=== PATIENT | female | born 1995 | race Caucasian/White ===

== ENCOUNTER → 2017-12-21 | Outpatient (CLI) | payer OTHER | END | disposition home or self-care (01) | LOC: C.LABMFLN 09:28 | PROVIDERS: ATTEND Internal Medicine Endocrinology, Diabetes & Metabolism | DX: E03.9 Hypothyroidism, unspecified (principal) ==

== ENCOUNTER 2020-05-01 07:06 | Inpatient (IN) ==
--- NOTE | 2020-04-30 16:00 | History & Physical Report ---
Date of Service April 30, 2020 Assessment & Plan (1) : Plan for repeat low transverse section with bilateral tubal ligation. Informed consent discussed in office. Questions answered. Reviewed RBA of , also discussed risk of 1-11/999 after tubal. Discussed use of Filshie clips and answered questions on these. Informed consent obtained. (2) Supervision of normal intrauterine in multigravida: (3) Previous delivery affecting , antepartum: (4) Bicornuate uterus affecting , antepartum: (5) Hypothyroid: (6) MTHFR gene mutation: History of Present Illness Chief Complaint: h/o cs x 2 Primary Care Provider: Colt Warren MD 24yo with EDC 05/08/20. History of section x 2, plan for repeat. complicated by: contractions at 24wk without dilation, no PTL - was put on Procardia 30XL daily, modified bedrest, taken off work, patient says [facility] had considered giving her steroids but did not actually do so yet. To stop Procardia as of 28wk and will notify us of any increase in cramping or resumption of mucousy discharge. H/O LEEP - cervical lengths checked several times, always normal. No further checks per [facility]. Prior CS x2 -, desires tubal. C/S SCHEDULED FOR 05/[address] M[address]Z AND [address]. PRESTON ASSIST Hypothyroid - Check TFTs monthly, continue synthroid 88mcg daily. (TSH in goal range at 28wk) Bicornuate Uterus - Growth scans monthly per [facility]. H/O GHTN/PreEclampsia (says "high BP" in [facility] records, but Preeclampsia in MFM consult) - on baby ASA daily MTHFR mutation, zygosity unknown - baby ASA daily per Dr. Macias, no test results available to confirm hetero/homozygous. MFM aware of baby ASA and did not recommend stopping. They did recommend "consider antiphospholipid syndrome" testing, and if positive, repeat in 12 weeks. If still positive, consider therapy including "ASA and pharmacologic anticoagulation." As 12 weeks will put her past the end of this , plan for now to continue ASA without changes to management. Allergies Allergy/AdvReac Type Severity Reaction Status Date / Time adhesive tape Allergy Intermediate Rash Verified 04/30/20 10:47 latex Allergy Intermediate Rash Verified 04/30/20 10:47 Home Medications Home Medications Medication Instructions Recorded Confirmed Type aspirin 81 mg chewable tablet 81 mg PO DAILY 02/11/20 04/30/20 History prenat.vits,jerzy,[id number] 1 tab PO DAILY 02/11/20 04/30/20 History levothyroxine 88 mcg capsule 88 mcg PO DAILY #30 cap 04/10/20 04/30/20 Rx Patient History Medical History ASCUS with positive high risk HPV Bicornate uterus AMINAH I (cervical intraepithelial neoplasia I) Hiatal hernia Hx of migraines Hypothyroid Missed x5 MTHFR gene mutation aspirin only during . no specialist. Nausea and vomiting after administration of anesthetic agent Surgical History H/O section x2 H/O LEEP History of dilatation and curettage History of esophagogastroduodenoscopy (EGD) History of tonsillectomy Family History Father Diabetes Heart disease Mother Heart disease Other Cancer Dyslipidemia Hypertension Myocardial infarction Social History Preferred Language: Mongolian Communication Ability: Effective Secondary History Teacher Required: No Beliefs That Will Affect Care: None marital status: marital status details: Hayden Muller [phone] Current Living Situation Comment: lives with parents current occupational status: unemployed Feels Safe at Home: Yes Smoking Status: Never smoker Second Hand Exposure: No ; Hx Alcohol Use: No Hx Substance Use: No Review of Systems All systems reviewed & are unremarkable except as noted in HPI & below Physical Exam Constitutional: WD/WN, vitals as above Respiratory: normal respiratory effort, lungs clear to auscultation no respiratory distress Cardiovascular: Rate/Rhythm: regular rate and regular rhythm Gastrointestinal (Abdomen): Inspection/Auscultation: abdomen normal to inspection Percussion/Palpation: abdomen soft; abdomen nontender Gravid. No s/s chorio or abruption. Skin: no rashes, warm and dry Psychiatric: A+Ox3, euthymic affect Monitoring External Monitor FHT + by doppler in office. Please see nursing notes for further details. Coding Level of Care Code None Diagnoses Z34.90 Supervision of normal intrauterine in multigravida Z34.80 Previous delivery affecting , antepartum O34.219 Bicornuate uterus affecting , antepartum O34.00; Q51.3 Hypothyroid E03.9 MTHFR gene mutation E72.12
[2020-05-01] MEDS ORDERED: LACTATED RINGER'S 1,000 ML IV SCH ×2 (08:15→14:15)
[2020-05-01 08:24] LABS: Basophils # (auto) 0.02 K/uL (0-0.2); Basophils % (auto) 0.3 %; Eosinophils # (auto) 0.06 K/uL (0-0.5); Eosinophils % (auto) 0.8 %; Hematocrit (blood only) 31.8 % (37-47); Hemoglobin 10.8 g/dL (12.0-16.0); Immature Granulocytes # (auto) 0.09 K/uL (0.00-0.02); Immature Granulocytes % (auto) 1.1 %; Lymphocytes # (auto) 1.46 K/uL (1.2-3.4); Lymphocytes % (auto) 18.5 %; Mean Corpuscular Hemoglobin 30.6 pg (25-34); Mean Corpuscular Volume 90.1 fL (80-100); Mean Platelet Volume 10.9 fL (7.4-10.4); Monocytes # (auto) 0.59 K/uL (0.11-0.59); Monocytes % (auto) 7.5 %; Neutrophils # (auto) 5.66 K/uL (1.4-6.5); Neutrophils % (auto) 71.8 %; Platelet Count 119 K/uL (130-400); RDW Coefficient of Variation 14.3 % (11.5-14.5); RDW Standard Deviation 46.9 fL (36.4-46.3); Red Blood Count 3.53 M/uL (4.2-5.4); White Blood Count 7.88 K/uL (4.8-10.8)
[2020-05-01] MEDS ORDERED: CEFAZOLIN 2000MG 2,000 MG/15 ML SYR IV SCH (09:00)
[2020-05-01] MEDS ORDERED: CITRIC ACID/SODIUM CITRATE 15 ML UDC PO SCH (09:00)
[2020-05-01] MEDS ORDERED: OXYTOCIN 10 UNITS/ML VIAL ONE ×2 (09:07→11:38)
[2020-05-01] MEDS ORDERED: MoRPHine SULFATE PF 1 MG/ML 10 ML AMP/VIAL ONE (09:07)
[2020-05-01] MEDS ORDERED: fentaNYL citrate 100 MCG/2 ML VIAL ONE (09:08)
[2020-05-01] MEDS ORDERED: DiphenhydrAMINE HCL 50 MG/ML VIAL IV PRN (09:11)
[2020-05-01] MEDS ORDERED: LACTATED RINGER'S 500 ML IV PRN (09:11)
[2020-05-01] MEDS ORDERED: NALOXONE HCL 0.4 MG/1 ML VIAL/CARP IV PRN (09:11)
[2020-05-01] MEDS ORDERED: NALOXONE HCL 0.08 MG in SYRINGE 1.8 ML IV PRN (09:11)
[2020-05-01] MEDS ORDERED: HYDROmorphone INJ 0.5 MG/0.5 ML SYR IV PRN (09:11)
[2020-05-01] MEDS ORDERED: MoRPHine SULFATE PF 1 MG/ML 10 ML AMP/VIAL INT SPINAL ONE (09:11)
[2020-05-01] MEDS ORDERED: ePHEDrine sulfate 50 MG/ML AMP IV PRN (09:11)
[2020-05-01] MEDS ORDERED: NALOXONE HCL 1 MG in SODIUM CHLORIDE 0.9% 1000ML 1,000 ML IV PRN (09:11)
[2020-05-01] MEDS ORDERED: ONDANSETRON INJ 2 MG/ML 2 ML VIAL IV PRN (09:12)
[2020-05-01] MEDS ORDERED: SODIUM CHLORIDE 0.9% 1000ML 1,000 ML IV SCH (09:15)
[2020-05-01] MEDS ORDERED: NO NARCOTICS OR SEDATIVES SCH (09:15)
--- NOTE | 2020-05-01 09:16 | Anesthesiology Consultation ---
Date of Service May 01, 2020 Covid 19 negative on 04/28/20. Assessment & Plan (1) Encounter for pre-operative examination: Chart Review Chart Review: Acceptable Risk for Surgery and Patient NOT seen in Pre Admission Testing Consults Requested none History Surgery Operation Date: 05/01/20 09:00 Proposed Procedures p Section, - Cherise Melendez DO s with Bilateral Tubal Ligation - Cherise Melendez DO Height/Weight Height: 5 ft 3 in Weight: 85.729 kg Allergies Allergy/AdvReac Type Severity Reaction Status Date / Time adhesive tape Allergy Intermediate Rash Verified 05/01/20 08:26 latex Allergy Intermediate Rash Verified 05/01/20 08:26 Medications Home Medications Medication Instructions Recorded Confirmed Last Taken aspirin 81 mg chewable tablet 81 mg PO DAILY 02/11/20 05/01/20 04/30/20 20:00 prenat.vits,jerzy,[id number] 1 tab PO DAILY 02/11/20 05/01/20 04/30/20 20:00 levothyroxine 88 mcg capsule 88 mcg PO DAILY #30 cap 04/10/20 05/01/20 05/01/20 05:00 NPO Date Last Intake of Fluids: 04/30/20 Time Last Intake of Fluids: 22:30 Date Last Intake of Solids: 04/30/20 Time Last Intake of Solids: 20:00 Past Medical History Medical History ASCUS with positive high risk HPV Bicornate uterus AMINAH I (cervical intraepithelial neoplasia I) Hiatal hernia Hx of migraines Hypothyroid Missed x5 MTHFR gene mutation aspirin only during . no specialist. Nausea and vomiting after administration of anesthetic agent Past Family History Family History Father Diabetes Heart disease Mother Heart disease Other Cancer Dyslipidemia Hypertension Myocardial infarction Past Surgical History Surgical History H/O section x2 H/O LEEP History of dilatation and curettage History of esophagogastroduodenoscopy (EGD) History of tonsillectomy Social History Smoking Status: Never smoker Do You Dip or Chew Tobacco: No Hx Alcohol Use: No Hx Substance Use: No substance use type: does not use Physical Exam Vital Signs Last Vital Signs Temp 37.1 C 05/01/20 07:27 Pulse 78 05/01/20 09:12 Resp 20 05/01/20 08:42 BP 115/82 05/01/20 08:42 Pulse Ox 100 05/01/20 09:12 Testing Laboratory Results 05/01/20 07:23 Blood Type O Positive 05/01/20 07:20 Antibody Screen NEGATIVE 05/01/20 07:20
--- NOTE | 2020-05-01 10:04 | History & Physical Bridge Note ---
Date of Service May 01, 2020 History & Physical Bridge Note I have examined the patient, reviewed the History & Physical and in the interval since the performance of the History & Physical I have noted the following changes of clinical significance: no changes noted
[2020-05-01] MEDS ORDERED: ONDANSETRON INJ 2 MG/ML 2 ML VIAL ONE (11:12)
[2020-05-01] MEDS ORDERED: PHENYLEPHRINE 100MCG/ML 5ML SYR ONE (11:12)
--- NOTE | 2020-05-01 12:48 | Operative Report ---
PG Post Operative Report Pre & Post Diagnosis Operation Date: 05/01/20 09:00 History of section x 2, desire for tubal ligation I identified the patient and participated in the time-out.: Yes Procedure Operation Date: 05/01/20 09:00 Repeat low transverse section, bilateral tubal ligation with Filshie clips Surgeon Cherise Melendez, DO Inventory Control Analyst Hellen Payne MD Estimated Blood Loss 600 Findings Consistent with Post-Op Diagnosis Viable male , Apgars 8/9. Weight pending - please see nursing records. Abnormal shape of uterus - has been previously reported as bicornuate, this is consistent with the bicornuate uterus. Normal appearing right fallopian tube/ovary. The left fallopian tube was scarred in behind the ovary. Left ovary appeared normal. Specimens placenta, cord blood, cord gas. Drains simon clear yellow Anesthesia Type Spinal Complications none Disposition Accompanied Patient To Recovery: No Disposition: L&D Indications 24yo @ 39 0/7, h/o section x 2, desires tubal sterilization. Description of Procedure The patient was seen in her room at labor and delivery, the procedure was discussed, she had previously signed informed consent under no duress in the office. All questions were answered. She was taken to the operating room, spinal anesthesia was introduced. She was then prepared and draped in the usual sterile fashion in the supine position with a leftward tilt. Timeout was confirmed. She received 2 g of Ancef preoperatively. A scalpel was used to create a Pfannenstiel incision, this was carried down to the layer fascia. The fascia was nicked at midline. This incision was extended bilaterally sharply. The superior aspect of the fascial incision was grasped with Carmen clamps x2, elevated off the underlying rectus abdominis muscles, and dissected sharply. In a similar fashion, the inferior aspect of the fascial incision was dissected. The rectus abdominis muscles were midline, and the bladder blade was placed. The bladder flap was created using Metzenbaum scissors. A low transverse uterine incision was made with a new scalpel, and this was bluntly. The was delivered delivered from a cephalic presentation, nuchal cord x1 was easily reduced. Cry was heard in the operative field. The cord was doubly clamped and cut, and the was handed off to the waiting chief nurse anesthetist. Cord blood was obtained and cord gases were obtained. The placenta was delivered spontaneously intact. The uterus was exteriorized, and it was cleared of clots and debris. The hysterotomy incision was reapproximated using 0 Vicryl in a running locked stitch. Second layer of the same suture was used to imbricate the incision. The posterior uterus was evaluated and found to be normal. Excellent hemostasis was observed. The right tubal sterilization was performed, by placing a Filshie clip in the isthmic region of the fallopian tube. The left fallopian tube was difficult to find. The fimbria were visible, however then the tube disappeared into the ovarian tissue. As the patient had dilated vessels consistent with , I felt that dissecting the tube out may cause a large amount of bleeding and could compromise blood supply to the ovary. Therefore, I clipped with a Filshie clip what I thought was the left fallopian tube. I discussed this with patient over the drape, and she is aware that she will need to have a hysterosalpingogram to ensure that her bilateral tubes are actually blocked. The uterus was then returned to the abdomen, excellent hemostasis was observed. The gutters were cleared of all clots and debris. The fascia was reapproximated using 0 Vicryl in a running stitch. The subcutaneous tissue was reapproximated using 2-0 plain gut suture. The skin was reapproximated using 4-0 Vicryl in a running subcuticular stitch. Steri-Strips were applied, the patient had reported she had tolerated the adhesive on Steri-Strips in the past. All instrument, sponge, needle counts were correct x2 at the conclusion of the case. The patient tolerated the procedure well, and was taken to her labor room for further recovery. I attest to the content of the Intraoperative Record and any orders documented therein. Any exceptions are noted below.
[2020-05-01 12:51] LABS: CO2 Cord Arterial Blood 65 mmHg (39.1-73.5); HCO3 Cord Arterial Blood 23 mmol/L (19.7-28.5); PO2 Cord Arterial Blood 12 mmHg (4.1-31.7); pH Cord Arterial Blood 7.17 (7.1-7.38)
[2020-05-01 12:55] LABS: Base Excess Cord Venous Blood -5.2 mEq/L (-7.7-1.9); Cord Venous Blood HCO3 21 mmol/L (18.4-26.8); Cord Venous Blood PCO2 45 mmHg (30.4-57.2); Cord Venous Blood PO2 23 mmHg (14.1-43.3)
[2020-05-01 13:00] LABS: O2 Saturation Cord Venous Bld < 60.0 % (<68); Oxygen Sat Cord Arterial Blood < 60.0 % (<60)
[2020-05-01] MEDS ORDERED: BENZOCAINE 20% AER SPR 82.5 GM CAN EXT PRN (14:15)
[2020-05-01] MEDS ORDERED: SENNA 8.6 MG TAB PO PRN (14:15)
[2020-05-01] MEDS ORDERED: SUPERCREAM 0.870% 15 GM JAR EXT PRN (14:15)
[2020-05-01] MEDS ORDERED: DIPHTHERIA/TETANUS/PERTUSSIS 0.5 ML SYR/VIAL IM ONE (14:15)
[2020-05-01] MEDS ORDERED: MAGNESIUM HYDROXIDE SUSP 30 ML UDC PO PRN (14:15)
[2020-05-01] MEDS ORDERED: HYDROCORTISONE ACETATE 25 MG SUPP PR PRN (14:15)
[2020-05-01] MEDS: SIMETHICONE 80 MG CHEW PO SCH ×2 (15:18→21:13)
--- NOTE | 2020-05-01 15:38 | Anesthesiology Progress Note ---
Date of Service May 01, 2020 Anesthesia Post Procedure Vital Signs Vital Signs: Temp Pulse Resp BP Pulse Ox 05/01/20 15:32 51 L 100 05/01/20 15:30 59 L 92 05/01/20 15:27 59 L 85 L 05/01/20 15:24 57 L 93 05/01/20 15:22 51 L 95 05/01/20 15:18 54 L 93 05/01/20 15:17 51 L 100 05/01/20 15:13 52 L 109/63 05/01/20 15:12 57 L 100 05/01/20 15:07 55 L 96 05/01/20 15:02 54 L 100 05/01/20 15:00 20 05/01/20 14:59 53 L 94 05/01/20 14:57 52 L 99 05/01/20 14:52 51 L 100 05/01/20 14:51 56 L 93 05/01/20 14:47 51 L 100 05/01/20 14:42 57 L 100 05/01/20 14:37 60 100 05/01/20 14:32 53 L 97 05/01/20 14:27 55 L 100 05/01/20 14:26 55 L 93 05/01/20 14:22 49 L 100 05/01/20 14:17 51 L 100 05/01/20 14:13 49 L 108/57 L 05/01/20 14:12 36.6 C 51 L 20 100 05/01/20 14:07 53 L 100 05/01/20 14:02 53 L 100 05/01/20 13:59 62 91 05/01/20 13:57 56 L 100 05/01/20 13:52 52 L 100 05/01/20 13:47 58 L 98 05/01/20 13:42 58 L 20 102/65 100 05/01/20 13:37 58 L 100 05/01/20 13:34 56 L 93 05/01/20 13:32 51 L 100 05/01/20 13:27 69 96 05/01/20 13:26 60 94 05/01/20 13:22 57 L 96 05/01/20 13:19 60 92 05/01/20 13:17 61 100 05/01/20 13:14 69 91 05/01/20 13:13 61 118/58 L 05/01/20 13:12 69 20 99 05/01/20 13:07 71 97 05/01/20 13:02 61 20 100 05/01/20 12:57 64 100 05/01/20 12:55 66 91 05/01/20 12:52 64 20 103/62 100 05/01/20 12:47 61 100 05/01/20 12:42 64 20 94/57 L 100 05/01/20 12:37 68 100 05/01/20 12:32 60 20 105/60 100 05/01/20 12:27 65 100 05/01/20 12:25 66 92 05/01/20 12:22 65 20 104/62 100 05/01/20 12:17 64 100 05/01/20 12:12 36.5 C 60 20 105/60 100 05/01/20 10:02 87 100 05/01/20 09:57 78 100 05/01/20 09:52 91 H 100 05/01/20 09:47 86 100 05/01/20 09:42 78 100 05/01/20 09:37 76 100 05/01/20 09:32 75 100 05/01/20 09:27 78 100 05/01/20 09:22 80 100 05/01/20 09:17 85 100 05/01/20 09:12 78 100 05/01/20 09:07 82 100 05/01/20 09:02 83 100 05/01/20 08:42 74 20 115/82 05/01/20 07:27 37.1 C 74 20 115/82 Transfer of Care Handoff Completed per policy Notes Mental Status: alert / awake / arousable Patient Amnestic to Procedure: Yes Nausea / Vomiting: adequately controlled Pain: adequately controlled Airway Patency, RR, SpO2: stable & adequate BP & HR: stable & adequate Hydration State: stable & adequate Neuraxial Anesthesia: was administered and sensory block is resolving Anesthetic Complications: no major complications apparent and Pt Satisfied with anesthetic care
[2020-05-01] MEDS: KETOROLAC 30 MG/ML VIAL IV PRN (15:58)
[2020-05-01] MEDS: OXYTOCIN 30 UNITS in LACTATED RINGER'S 1,000 ML IV SCH (15:59)
[2020-05-01] MEDS: DOCUSATE SODIUM 100 MG CAP PO SCH (21:13)
[2020-05-02] MEDS: OXYTOCIN 30 UNITS in LACTATED RINGER'S 1,000 ML IV SCH (00:10)
[2020-05-02] MEDS: KETOROLAC 30 MG/ML VIAL IV PRN (02:00)
[2020-05-02] MEDS ORDERED: DiphenhydrAMINE HCL 50 MG/ML VIAL IV PRN (03:11)
[2020-05-02] MEDS ORDERED: PROMETHAZINE HCL 25 MG in SODIUM CHLORIDE 0.9% 50 ML IV PRN (03:11)
[2020-05-02] MEDS ORDERED: ONDANSETRON INJ 2 MG/ML 2 ML VIAL IV PRN (03:11)
[2020-05-02] MEDS ORDERED: DC INTRASPINAL MORPHINE ONE (03:11)
[2020-05-02] MEDS ORDERED: KETOROLAC 30 MG/ML VIAL IV PRN (03:11)
[2020-05-02] MEDS: LEVOTHYROXINE SODIUM 88 MCG TABLET PO SCH (06:08)
--- NOTE | 2020-05-02 06:38 | Obstetrical Progress Note ---
Date of Service <Gentry Murdock MD - Last Filed: 05/02/20 06:50> May 02, 2020 Assessment & Plan <Gentry Murdock MD - Last Filed: 05/02/20 06:50> (1) : - Feels well today. Eating well, voiding well, ambulating well. - Pain well controlled with analgesics. - Routine postop care - After discharge will have 6 week followup. Subjective <Gentry Murdock MD - Last Filed: 05/02/20 06:50> Kareen is a 24 y/o female ; POD #1 following delivery at 39 weeks; doing well this morning; light abdominal cramping & no pain; voiding well; tolerating meals overnight and able to ambulate some. Has some persistent spotting with some improvement this morning. Review of Systems Constitutional: denies fever, chills, sweat, headache Respiratory: denies shortness of breath, difficulty breathing Cardiac: denies chest pain, palpitations, chest pressure Breast: denies breast pain : denies dysuria Physical Exam <Gentry Murdock MD - Last Filed: 05/02/20 06:50> General: Alert, oriented. No acute distress. Cardiac: Regular rate and rhythm, no murmurs/rubs/gallops. Respiratory: Clear to auscultation bilaterally a/p, no wheezes/rales/rhonchi. No increased work of breathing. Symmetrical chest rise. No respiratory distress. Abdomen: Soft, nontender, nondistended. Bowel sounds present. Uterus: Uterine fundus firm, palpable 1cm below umbilicus. Surgical scar clean and healing well. Lower Extremities: No lower extremity edema or swelling. No deep calf pain. Adilia's negative bilaterally. Results & Data <Gentry Murdock MD - Last Filed: 05/02/20 06:50> Vital Signs (Past 12 Hours) Vital Signs Temp Pulse Resp BP Pulse Ox 05/02/20 03:55 36.5 C 72 16 113/73 98 05/02/20 03:00 16 98 05/02/20 02:04 16 100 05/02/20 01:15 16 97 05/02/20 00:13 16 99 05/01/20 23:25 36.8 C 81 16 104/67 100 05/01/20 22:25 16 97 05/01/20 21:46 16 98 05/01/20 21:15 16 98 05/01/20 20:25 16 98 05/01/20 20:05 36.7 C 74 16 116/78 98 05/01/20 19:20 16 98 <Cherise Melendez DO - Last Filed: 05/02/20 08:04> Co-Signing Physician Notes Resident Physician Supervision Note: I was present with Dr. Gilmore during the history and exam. I discussed the case with the resident and agree with the findings and plan as documented in the note. Any exceptions or clarifications are listed here: POD#1 doing well, no concerns. Continue routine postop care. Documented By: Cherise Melendez DO Resident Activity Tracking <Gentry Murdock MD - Last Filed: 05/02/20 06:50> Resident Involvement: Resident Care Provided Care Provided: OB Delivery
[2020-05-02] MEDS: SIMETHICONE 80 MG CHEW PO SCH ×5 (08:17→20:46)
[2020-05-02 08:22] LABS: Basophils # (auto) 0.01 K/uL (0-0.2); Basophils % (auto) 0.1 %; Eosinophils # (auto) 0.05 K/uL (0-0.5); Eosinophils % (auto) 0.5 %; Hematocrit (blood only) 30.7 % (37-47); Hemoglobin 10.2 g/dL (12.0-16.0); Immature Granulocytes # (auto) 0.06 K/uL (0.00-0.02); Immature Granulocytes % (auto) 0.6 %; Lymphocytes # (auto) 1.11 K/uL (1.2-3.4); Lymphocytes % (auto) 11.4 %; Mean Corpuscular Hemoglobin 30.5 pg (25-34); Mean Corpuscular Hgb Conc 33.2 g/dL (32-36); Mean Corpuscular Volume 91.9 fL (80-100); Mean Platelet Volume 10.7 fL (7.4-10.4); Monocytes # (auto) 0.89 K/uL (0.11-0.59); Monocytes % (auto) 9.1 %; Neutrophils # (auto) 7.61 K/uL (1.4-6.5); Neutrophils % (auto) 78.3 %; Platelet Count 122 K/uL (130-400); RDW Coefficient of Variation 14.6 % (11.5-14.5); RDW Standard Deviation 48.1 fL (36.4-46.3); Red Blood Count 3.34 M/uL (4.2-5.4); White Blood Count 9.73 K/uL (4.8-10.8)
[2020-05-02] MEDS: FERROUS SULFATE 325 MG TAB PO SCH (08:51)
[2020-05-02] MEDS: DOCUSATE SODIUM 100 MG CAP PO SCH ×2 (08:51→20:46)
[2020-05-02] MEDS: PRENATAL VITAMIN 1 TAB PO SCH (08:51)
--- NOTE | 2020-05-02 10:51 | Anesthesiology Progress Note ---
Date of Service May 02, 2020 Anesthesia Post Procedure Vital Signs Vital Signs: Temp Pulse Pulse Resp BP BP Pulse Ox 05/02/20 03:55 36.5 C 72 16 113/73 98 05/02/20 03:00 16 98 05/02/20 02:04 16 100 05/02/20 01:15 16 97 05/02/20 00:13 16 99 05/01/20 23:25 36.8 C 81 16 104/67 100 05/01/20 22:25 16 97 05/01/20 21:46 16 98 05/01/20 21:15 16 98 05/01/20 20:25 16 98 05/01/20 20:05 36.7 C 74 16 116/78 98 05/01/20 19:20 16 98 05/01/20 18:00 20 98 05/01/20 17:00 20 97 05/01/20 16:27 79 99 05/01/20 16:22 59 L 99 05/01/20 16:17 56 L 100 05/01/20 16:13 60 111/70 05/01/20 16:12 61 100 05/01/20 16:11 58 L 93 05/01/20 16:07 54 L 100 05/01/20 16:02 51 L 100 05/01/20 16:00 20 05/01/20 15:57 60 100 05/01/20 15:52 58 L 100 05/01/20 15:49 61 92 05/01/20 15:47 52 L 100 05/01/20 15:42 60 100 05/01/20 15:37 55 L 100 05/01/20 15:32 51 L 100 05/01/20 15:30 59 L 92 05/01/20 15:27 59 L 85 L 05/01/20 15:24 57 L 93 05/01/20 15:22 51 L 95 05/01/20 15:18 54 L 93 05/01/20 15:17 51 L 100 05/01/20 15:13 52 L 109/63 05/01/20 15:12 57 L 100 05/01/20 15:07 55 L 96 05/01/20 15:02 54 L 100 05/01/20 15:00 20 05/01/20 14:59 53 L 94 05/01/20 14:57 52 L 99 05/01/20 14:52 51 L 100 05/01/20 14:51 56 L 93 05/01/20 14:47 51 L 100 05/01/20 14:42 57 L 100 05/01/20 14:37 60 100 05/01/20 14:32 53 L 97 05/01/20 14:27 55 L 100 05/01/20 14:26 55 L 93 05/01/20 14:22 49 L 100 05/01/20 14:17 51 L 100 05/01/20 14:13 49 L 108/57 L 05/01/20 14:12 36.6 C 51 L 20 100 05/01/20 14:07 53 L 100 05/01/20 14:02 53 L 100 05/01/20 13:59 62 91 05/01/20 13:57 56 L 100 05/01/20 13:52 52 L 100 05/01/20 13:47 58 L 98 05/01/20 13:42 58 L 20 102/65 100 05/01/20 13:37 58 L 100 05/01/20 13:34 56 L 93 05/01/20 13:32 51 L 100 05/01/20 13:27 69 96 05/01/20 13:26 60 94 05/01/20 13:22 57 L 96 05/01/20 13:19 60 92 05/01/20 13:17 61 100 05/01/20 13:14 69 91 05/01/20 13:13 61 118/58 L 05/01/20 13:12 69 20 99 05/01/20 13:07 71 97 05/01/20 13:02 61 20 100 05/01/20 12:57 64 100 05/01/20 12:55 66 91 05/01/20 12:52 64 20 103/62 100 05/01/20 12:47 61 100 05/01/20 12:42 64 20 94/57 L 100 05/01/20 12:37 68 100 05/01/20 12:32 60 20 105/60 100 05/01/20 12:27 65 100 05/01/20 12:25 66 92 05/01/20 12:22 65 20 104/62 100 05/01/20 12:17 64 100 05/01/20 12:12 36.5 C 60 20 105/60 100 Pain Intensity Abdomen: Pain Intensity: 3 Transfer of Care Handoff Completed per policy Notes Mental Status: alert / awake / arousable Patient Amnestic to Procedure: Yes Nausea / Vomiting: adequately controlled Pain: adequately controlled Airway Patency, RR, SpO2: stable & adequate BP & HR: stable & adequate Hydration State: stable & adequate Neuraxial Anesthesia: was administered and sensory block resolved Anesthetic Complications: no major complications apparent and Pt Satisfied with anesthetic care
[2020-05-02] MEDS: IBUPROFEN 600 MG TAB PO PRN (16:49)
[2020-05-02] MEDS: OXYCODONE/ACETAMINOPHEN 5mg/325mg TAB PO PRN (16:49)
[2020-05-02] MEDS ORDERED: bisacodyL 5 MG TABEC PO SCH (20:00)
[2020-05-03 06:07] LABS: Hematocrit (blood only) 28.5 % (37-47); Hemoglobin 9.4 g/dL (12.0-16.0)
[2020-05-03] MEDS: LEVOTHYROXINE SODIUM 88 MCG TABLET PO SCH (06:19)
[2020-05-03] MEDS: IBUPROFEN 600 MG TAB PO PRN (06:20)
[2020-05-03] MEDS: OXYCODONE/ACETAMINOPHEN 5mg/325mg TAB PO PRN (06:21)
--- NOTE | 2020-05-03 09:10 | Obstetrical Progress Note ---
Date of Service May 03, 2020 Assessment & Plan (1) examination following delivery: stable for d/c home, f/u 6 wks pp check. will not rely on tubal until has HSG that surgeon told her about. instructions reviewed. checked on pa pdmp and no issues. Day #:: 2 Subjective Ambulation: ambulating normally Voiding: no voiding problems Passing Gas:: Yes Diet Tolerance:: regular diet Lochia:: Small Feeding Type:: breast feeding pain well controlled. denies complaints, ready to go home. Physical Exam Constitutional WD/WN, vitals as above Respiratory normal respiratory effort, lungs clear to auscultation Cardiovascular Rate/Rhythm: regular rate and regular rhythm Gastrointestinal (Abdomen) Inspection/Auscultation: abdomen normal to inspection and + abdominal surgical incision (c/d/i with steris) Percussion/Palpation: abdomen soft fundus firm 2 cm below umbilicus Musculoskeletal nt calves no edema Neurologic grossly normal Psychiatric A+Ox3, euthymic affect Results & Data ([facility]) Vital Signs (Past 12 Hours) Vital Signs Temp Pulse Resp BP Pulse Ox 05/03/20 00:00 97.5 F L 82 16 101/65 99
[2020-05-03] MEDS: PRENATAL VITAMIN 1 TAB PO SCH (09:15)
[2020-05-03] MEDS: SIMETHICONE 80 MG CHEW PO SCH (09:16)
[2020-05-03] MEDS: FERROUS SULFATE 325 MG TAB PO SCH (09:16)
[2020-05-03] MEDS: DOCUSATE SODIUM 100 MG CAP PO SCH (09:16)
[2020-05-03] MEDS ORDERED: bisacodyL 10 MG SUPP PR PRN (12:05)
--- NOTE | 2020-05-12 08:14 | Discharge Summary ---
Date of Service May 12, 2020 Admission HPI Per Admitting Provider 24yo with EDC 05/08/20. History of section x 2, plan for repeat. complicated by: contractions at 24wk without dilation, no PTL - was put on Procardia 30XL daily, modified bedrest, taken off work, patient says [facility] had considered giving her steroids but did not actually do so yet. To stop Procardia as of 28wk and will notify us of any increase in cramping or resumption of mucousy discharge. H/O LEEP - cervical lengths checked several times, always normal. No further checks per MFM. Prior CS x2 -, desires tubal. C/S SCHEDULED FOR 05/[address] MELENDEZ AND DR. PRESTON ASSIST Hypothyroid - Check TFTs monthly, continue synthroid 88mcg daily. (TSH in goal range at 28wk) Bicornuate Uterus - Growth scans monthly per [facility]. H/O GHTN/PreEclampsia (says "high BP" in [facility] records, but Preeclampsia in M consult) - on baby ASA daily MTHFR mutation, zygosity unknown - baby ASA daily per Dr. Macias, no test results available to confirm hetero/homozygous. MFM aware of baby ASA and did not recommend stopping. They did recommend "consider antiphospholipid syndrome" testing, and if positive, repeat in 12 weeks. If still positive, consider therapy including "ASA and pharmacologic anticoagulation." As 12 weeks will put her past the end of this , plan for now to continue ASA without changes to management. Discharge Data Consultations 05/01/20 08:11 Consult Anesthesiology Stat Procedures Performed Operation Date: 05/01/20 09:00 Actual Procedures p Section in LD - Cherise Melendez, Hospital Course (1) examination following delivery: (2) Previous delivery affecting , antepartum: Admitted for section, please see op report for details. DC home POD#2. Followup in office 6w. Coding Level of Care Code None Diagnoses examination following delivery Z39.2 Previous delivery affecting , antepartum O34.219
== END 2020-05-03 11:43 | disposition home or self-care (01) | DRG 784 ==
LOC: 4S1 07:06 → 4S2 16:35 → EDSTATUS 05-04 08:50